=== PATIENT | male | born 1980 | race Two or more races ===

== ENCOUNTER → 2021-12-17 | Emergency (ER) | payer MEDICAID ==
[~2021-12-17] VITALS: Ht 167.6 cm; Wt 95.3 kg
[~2021-12-17] MED LIST: BACI/NEOM/POLY B OINT PKT 1 UDPKT PACKET ONE; BACI/NEOM/POLY B OINT PKT 1 UDPKT PACKET TP ONE; HYDR-4209 PO; HYDROCODONE/APAP 5/325MG TABLET ONE; HYDROCODONE/APAP 5/325MG TABLET PO ONE; IBUPROFEN 600 MG TABLET ONE; IBUPROFEN 600 MG TABLET PO ONE; ONDANSETRON 4 MG TAB.RAPDIS ONE; ONDANSETRON 4 MG TAB.RAPDIS SL ONE
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
--- NOTE | 2021-12-18 00:18 | NUR ---
PT DISCHARGED IN STABLE CONDITION
[2021-12-18 00:19] VITALS: BP 128/84
== END | disposition home or self-care (01) ==
LOC: ER 21:17
DX: S70.12XA Contusion of left thigh, initial encounter (principal); S50.312A Abrasion of left elbow, initial encounter; V89.2XXA Person injured in unspecified motor-vehicle accident, traffic, initial encounter; Y93.89 Activity, other specified; Y92.89 Other specified places as the place of occurrence of the external cause; Y99.8 Other external cause status
CPT/HCPCS: 99284; Q0162